=== PATIENT | male | born 1950 | race Caucasian/White ===

== ENCOUNTER 2023-12-01 06:22 | Inpatient (IN) | payer MEDICARE, SELFPAY ==
--- NOTE | 2023-10-26 12:02 | CM ---
Patient is scheduled for a R TH Revision on 12/01/23. Spoke with patient prior to surgery via telephone. Introduced role of Orthopedic Navigator. Patient reports that he lives alone in a one story home. There are two steps to enter. He currently
functions independently. He has a rolling walker, cane, crutches, raised toilet seat and firm cushion. He will borrow hip kit items from his [id number]. He had VN services after his prior THR (done at an outside facility in 2021). PCP is Karsten
Mary.
Discussed orthopedic program and post surgical plans. Reviewed anticipated length of stay and that goal is for him to return home at discharge. Also reviewed outpatient PT. Patient is in agreement with tentative plan and will go directly to
outpatient PT at [facility]. he states that someone will stay with him for two weeks after the surgery.
Patient will complete online education.
Plan: Orthopedic Navigator will remain available to assist with the care of patient and will reassess discharge needs after surgery.
[2023-11-09 07:57] VITALS: BMI 31.3
[2023-11-09 09:01] LABS: Hemoglobin 14.6 g/dL (13.0-18.0); Mean Corp Hgb Conc. 32.4 g/dL (33.0-37.0); Mean Corpuscular Hgb 27.2 pg (27.0-31.0); Mean Corpuscular Volume 83.8 fL (80.0-94.0); Mean Platelet Volume 11.5 fL (7.4-10.4); Platelet Count 203 10^3/uL (130-400); Red Blood Cell Count 5.37 10^6/uL (4.70-6.10); Red Cell Dist. Width 13.3 % (11.5-14.5); White Blood Cell Count 6.2 10^3/uL (4.8-10.8)
[2023-11-09 09:18] LABS: ALT (SGPT) 28 U/L (0-50); AST (SGOT) 27 U/L (17-59); Albumin 4.4 g/dl (3.5-5.0); Alkaline Phosphatase 114 U/L (38-126); Blood Urea Nitrogen 20 mg/dl (9-20); Calcium 9.9 mg/dl (8.4-10.2); Carbon Dioxide 27 mmol/L (22-30); Chloride 106 mmol/L (98-107); Estimated Creatinine Clearance 74 ml/min; Glucose 113 mg/dl (70-99); Sodium 141 mmol/L (135-145); Total Bilirubin 0.5 mg/dl (0.2-1.3); Total Protein 7.1 g/dl (6.3-8.2); eGFR > 60.00
--- NOTE | 2023-11-09 10:45 | HPS.HSE ---
Family Physician
-
Family Physician: Karsten Hernandez
Chief Complaint
-
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
History of Present Illness
The patient is a 73 year old male presenting today for a mechanical failure of his right total hip arthroplasty. The patient previously underwent an uncomplicated right total hip arthroplasty with Dr. Ton Ludwig in May 2022.
Approximately one year after surgery, the patient began developing right sided groin pain. X-rays at that time did suggest possible loosening of his right femoral stem. A follow-up three phase bone scan on 06/07/2023 demonstrated mild uptake about
the femoral component of the patient's right hip arthroplasty, which likely did represent early loosening of the femoral component. Thankfully, inflammatory markers have been normal (CRP <5, ESR 11), making suspicion for underlying infection low. He
notes that his current right sided groin pain greatly interferes with his activities of daily living and is overall impacting his quality of life. He is interested in pursuing a revision of his previous right total hip arthroplasty for further
management. He denies any current complaints today such as chest pain, shortness of breath, palpitations, nausea, vomiting, diarrhea, lightheadedness, dizziness, cough, sore throat, or fever.
Medical History
Past Medical History
Past Medical History: Reports Other
Additional Past Medical History:
1. 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
2. Osteoarthritis, status post right total hip arthroplasty, 05/2022, by Dr. Ton Ludwig.
3. Elevated blood pressure without diagnosis of hypertension.
4. Hyperlipidemia.
5. PVCs, asymptomatic.
6. Exercise induced asthma.
7. Colon polyps.
8. Nephrolithiasis.
9. Lumbar stenosis.
10. Leg length discrepancy, right lower extremity shorter than left lower extremity.
11. BPH per records.
12. Prediabetes, A1c 5.7.
13. Obesity, BMI 31.3.
14. Remote history of tobacco abuse.
15. Daily alcohol.
Past Surgical History: Reports Other
Additional Past Surgical History:
1. Right total hip arthroplasty, 05/2022, by Dr. Ton Ludwig.
2. Laser lithotripsy.
Social History
Tobacco: Former Smoker (Former 1 pack per day cigarette smoker who quit tobacco altogether 30 years ago. )
Alcohol: Daily (He drinks, on average, 1-2 glasses of wine every evening with dinner. )
Living: Alone (in a ranch-style home. His brother who lives close by will be helping him post-surgery. )
Family History
Family History: Not pertinent
Allergies / Home Medications
Allergy/Medication List:
Home medications:
1. Albuterol sulfate 1 puff inhaled every 6 hours as needed.
2. Ibuprofen 400 mg p.o. every 6 hours as needed.
Allergies: No known allergies.
Review of Systems
-
A 12 point ROS was completed and negative except as noted: Yes
Physical Exam
Vital Signs
Blood pressure 152/88. Heart rate 63. Respirations 18. Pulse ox 97%.
Height 5 feet, 7.5 inches. Weight 92 kg. BMI 31.3.
Physical Exam
General: Well Developed, Well Nourished and No Apparent Distress
HEENT: NormoCephalic, Moist mucous membranes, Atraumatic and PERRLA
Respiratory: Clear
Cardiac: Regular Rhythm
GI: Soft, Non Tender, Non Distended and Other (Obese.)
Musculoskeletal: Other (No pain with passive motion of bilateral hips. Right lower extremity approximately 1 cm shorter than left lower extremity. )
Skin: Warm and Dry
Neuro: AO x 3 and Nonfocal/grossly intact
Laboratory Results
-
11/09/23 07:39
11/09/23 07:39
Laboratory Results
Total Bilirubin 0.5 mg/dl (0.2-1.3) 11/09/23 07:39
AST 27 U/L (17-59) 11/09/23 07:39
ALT 28 U/L (0-50) 11/09/23 07:39
Alkaline Phosphatase 114 U/L (38-126) 11/09/23 07:39
Hemoglobin A1c 5.7.
Type and screen O positive.
MRSA screen negative.
EKG 11/09/2023: Normal sinus rhythm.
Impression/Plan
-
CLEARANCES:
1. Primary medical, Dr. Karsten Hernandez, cleared.
Primary medical phone number: [phone].
2. Dental cleared.
IMPRESSION/PLAN:
1. 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 Ton Ludwig on 12/01/2023. The benefits and risks of the procedure have been explained to the patient. The patient understands
these risks and wishes to proceed.
2. DVT prophylaxis - Aspirin with bilateral venous compression devices.
Patient's phone number: [phone].
Patient's contact (Nigel Lewis - Brother): [phone].
[2023-11-09 11:28] LABS: Glycohemoglobin (HgbA1c) 5.7 % (4.0-5.6)
[2023-11-09 14:56] VITALS: BMI 31.3
[2023-12-01] VITALS (12 sets, daily range): BP systolic 126–172; BP diastolic 64–92; PULSE 63; O2SAT 96; BMI 31.3
[2023-12-01] MEDS: CELEBREX 200 MG PO (08:01)
[2023-12-01] MEDS: TYLENOL 650 MG PO ×5 (08:01→23:45)
[2023-12-01] MEDS: NORMOSOL-R 1000 IV ×2 (08:45→11:41)
[2023-12-01] MEDS: ROXICODONE 5 MG PO (11:41)
--- NOTE | 2023-12-01 12:15 | PTCARENOTE ---
Received patient from PACU. Patient s/p R Hip Revision for hardware failure (S/p FERNANDO May 2023).
R Posterior Hip Aquacel CDI. Patient has great pedal pulses, + dorsiplantar/flexion, + sensation.
--- NOTE | 2023-12-01 12:57 | W.PN.UPDATE ---
Update Note
Progress Note Update
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
DVT prophylaxis - ASA, b/l venous foot pumps
Elevated blood pressure without diagnosis of hypertension - monitor BP
- Ensure adequate pain control
PVCs, asymptomatic - monitor on tele
Exercise induced asthma - monitor O2
- IS
- Continue inhaler prn
BPH per records - monitor voids
- Add daily Flomax
Daily alcohol - 1-2 drinks/daily - supplement w/ Thiamine and Folate
Osteoarthritis, status post right total hip arthroplasty, 05/2022, by Dr. Ton Ludwig
Hyperlipidemia
Colon polyps
Nephrolithiasis
Lumbar stenosis
Leg length discrepancy, right lower extremity shorter than left lower extremity
Prediabetes, A1c 5.7
Obesity, BMI 31.3
Remote history of tobacco abuse
[2023-12-01] MEDS: FOLVITE 0.5 MG PO (13:15)
[2023-12-01] MEDS: FLOMAX 0.400000000000000022 MG PO (13:15)
[2023-12-01] MEDS: VITAMIN B1 100 MG PO (13:15)
[2023-12-01] MEDS: ANCEF 5 IV (17:49)
[2023-12-01] MEDS: ASPIRIN 325 MG PO (17:50)
[2023-12-01] MEDS: BACTROBAN 2% OINTMENT 1 APPLIC NASAL (21:15)
[2023-12-01] MEDS: DECADRON 4 MG PO (21:16)
[2023-12-01] MEDS: SENOKOT 17.1999999999999993 MG PO (21:16)
[2023-12-01] MEDS: COLACE 100 MG PO (21:16)
[2023-12-02] MEDS: ANCEF 5 IV (01:04)
[2023-12-02 03:05] VITALS: BP 147/75
[2023-12-02] MEDS: TYLENOL 650 MG PO ×2 (03:46→08:15)
[2023-12-02 07:47] VITALS: BP 140/69
[2023-12-02] MEDS: BACTROBAN 2% OINTMENT 1 APPLIC NASAL (08:15)
[2023-12-02] MEDS: DECADRON 4 MG PO (08:15)
[2023-12-02] MEDS: FLOMAX 0.400000000000000022 MG PO (08:15)
[2023-12-02] MEDS: SENOKOT 17.1999999999999993 MG PO (08:15)
[2023-12-02] MEDS: CELEBREX 200 MG PO (08:16)
[2023-12-02] MEDS: ASPIRIN 325 MG PO (08:16)
[2023-12-02] MEDS: FOLVITE 0.5 MG PO (08:16)
[2023-12-02] MEDS: VITAMIN B1 100 MG PO (08:16)
[2023-12-02] MEDS: COLACE 100 MG PO (08:16)
--- NOTE | 2023-12-02 08:37 | CM ---
Addendum entered by Norma Quiles 12/02/23 09:07:
Patient did well in therapy. He has no concerns about going home and has updated his friend.
Original Note:
Reviewed chart and held rounds with PT, OT and nursing. Patient admitted as planned for R TH Revision. Met with patient at bedside. Confirmed information previously obtained for assessment. Also discussed discharge plans. The plan is for patient to
return home at discharge. A friend will be staying with him for a few days. Patient will go directly to outpatient PT and will go to [facility]. He has an appointment scheduled for Wednesday, 12/02. Reviewed need to schedule appointment with PA at .
Oziel's office in two weeks for removal of celia.
Patient has all needed DME at home.
He will use [facility] pharmacy for discharge prescriptions.
[2023-12-02 08:49] VITALS: BP 140/69; PULSE 78; O2SAT 97
--- NOTE | 2023-12-02 09:17 | W.PN.ORTHO ---
Today's Communication / Plan
-
D/c today since clinically stable.
Assessment
.
Distal Motor Intact: Yes
Dressing:
Old, scant incisional bleeding. Dressing otherwise C/D/I.
Assessment:
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
DVT prophylaxis - ASA, b/l venous foot pumps
Elevated blood pressure without diagnosis of hypertension - BPs stable
- Ensure adequate pain control
PVCs, asymptomatic - maintaining NSR on tele
Exercise induced asthma - O2 stable on RA
- IS
- Continue inhaler prn
BPH per records - voiding w/ added Flomax during admission
Daily alcohol - 1-2 drinks/daily - supplement w/ Thiamine and Folate
Osteoarthritis, status post right total hip arthroplasty, 05/2022, by Dr. Ton Ludwig
Hyperlipidemia
Colon polyps
Nephrolithiasis
Lumbar stenosis
Leg length discrepancy, right lower extremity shorter than left lower extremity
Prediabetes, A1c 5.7
Obesity, BMI 31.3
Remote history of tobacco abuse
Plan
.
Surgery / Date: Revision of R FERNANDO w/ Dr Ludwig 12/01/23
DVT Prophylaxis: Aspirin
Activity:
Out of bed.
PT/OT
Discharge Plan: Home w/ Outpatient PT
Subjective
.
.:
Patient resting comfortably in his chair this morning.
Feels well. R hip pain minimal. Denies new complaints.
Did very well w/ OT an PT today.
Eager for potential d/c.
Vital Signs and Labs
.
Vital Signs and Labs:
Lab Results
11/09/23 07:39
11/09/23 07:39
Temp Pulse Resp BP Pulse Ox
97.9 F 82 19 140/69 97
12/02/23 07:47 12/02/23 07:47 12/02/23 07:47 12/02/23 07:47 12/02/23 07:47
Non-invasive Hgb result: 14.1
Physical Exam
-
HEENT: No pallor, cyanosis, or jaundice. Throat clear.
NECK: Supple. No JVD.
RESPIRATORY: Lungs clear to auscultation.
CVS: S1, S2 normal. RRR.�
ABDOMEN: Soft, non-tender. No distension.
EXTREMITIES: Strength equal, no calf pain with palpation/dorsiflexion. Calves soft.
CEMENT SIDE LASTER: AOx3. No focal deficits. manager net grossly intact
--- NOTE | 2023-12-02 09:32 | W.DS.TRANS ---
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
-
Discharge Instructions:
Sleep Apnea Risk Low
Discharge Diagnosis/Procedures Mechanical failure of R FERNANDO s/p Revision of R
FERNANDO w/ Dr Ludwig 12/01/23
Diet Other diet
Additional Diets Diabetic carb controlled x1 week for wound
healing/infection prevention; then resume
regular diet.
Activity As tolerated,With Walker
Driving Restrictions Not until seen by your Dr
Bathing Restrictions OK to Shower
Other Services PT
Wound Care Dressing to be removed 1 week post-surgery.
[place] to be removed in 2 weeks at follow-up
appointment with surgeon's office.
Instructions:
Stand-Alone Forms: Total Hip/Knee Replacement D/C
Changes to Home Medications: Yes
Discharge Medications:
DC Medications w/original date entered in [facility]
albuterol sulfate 90 mcg/actuation aerosol inhaler 1 inh inhalation Q6HPRN PRN shortness of breath 11/03/23
mupirocin 2 % topical ointment 1 applic intranasal BID #1 tube 11/09/23
acetaminophen 500 mg tablet (Tylenol Extra Strength) 1,000 mg (2 x 500 mg) PO Q6H #60 tabs 12/02/23
aspirin 325 mg tablet 325 mg PO DAILY #30 tabs 12/02/23
celecoxib 200 mg capsule 200 mg PO DAILY #30 caps 12/02/23
dexamethasone 4 mg tablet 4 mg PO BID #5 tabs 12/02/23
docusate sodium 100 mg capsule 100 mg PO BID #30 caps 12/02/23
ondansetron HCl 4 mg tablet 4 mg PO Q6H PRN nausea and vomiting #30 tabs 12/02/23
oxycodone 5 mg tablet 5 - 10 mg (1 - 2 x 5 mg) PO Q6H PRN moderate-severe pain #30 tabs 12/02/23
sennosides 8.6 mg tablet (Senna Laxative) 17.2 mg (2 x 8.6 mg) PO BID #30 tabs 12/02/23
Home Medication Changes
acetaminophen 500 mg tablet (Tylenol Extra Strength) 1,000 mg (2 x 500 mg) PO Q6H #60 tabs 12/02/23
aspirin 325 mg tablet 325 mg PO DAILY #30 tabs 12/02/23
celecoxib 200 mg capsule 200 mg PO DAILY #30 caps 12/02/23
dexamethasone 4 mg tablet 4 mg PO BID #5 tabs 12/02/23
docusate sodium 100 mg capsule 100 mg PO BID #30 caps 12/02/23
ondansetron HCl 4 mg tablet 4 mg PO Q6H PRN nausea and vomiting #30 tabs 12/02/23
oxycodone 5 mg tablet 5 - 10 mg (1 - 2 x 5 mg) PO Q6H PRN moderate-severe pain #30 tabs 12/02/23
sennosides 8.6 mg tablet (Senna Laxative) 17.2 mg (2 x 8.6 mg) PO BID #30 tabs 12/02/23
Pending Results: Yes
Additional Pending Results:
Tissue culture/anaerobic culture.
--- NOTE | 2023-12-02 10:30 | PTCARENOTE ---
Patient ready for discharge. Went over discharge instructions with patient, removed IV.
Patient was escorted out of hospital by MARJ Olivo.
== END 2023-12-02 10:32 | disposition home or self-care (01) | DRG 468 ==
LOC: 2 SOUTH 06:22
PROVIDERS: ADMITTING PHYSICIAN Orthopaedic Surgery; FAMILY PHYSICIAN Family Medicine
PROC: 0SW90JZ Revision of Synthetic Substitute in Right Hip Joint, Open Approach (ICD-10-PCS; 2023-12-01)
DX: T84.090A Other mechanical complication of internal right hip prosthesis, initial encounter (principal); Y79.2 Prosthetic and other implants, materials and accessory orthopedic devices associated with adverse incidents; Z87.891 Personal history of nicotine dependence; J45.990 Exercise induced bronchospasm; N40.0 Benign prostatic hyperplasia without lower urinary tract symptoms; I49.3 Ventricular premature depolarization
CPT/HCPCS: 36415; 73502; 80053; 83036; 85027; 86850; 86900; 86901; 87070; 87075; 87176; 87205; 93005; 97110; 97116; 97162; 97166; 97530; 97535; C1776